=== PATIENT | female | born 1985 ===

== ENCOUNTER → 2022-01-22 | Outpatient (REF) | payer OTHER | LOC: M LAB REF 17:59 | PROVIDERS: ATTEND Physician Assistant Medical | DX: N39.0 Urinary tract infection, site not specified (principal) ==

== ENCOUNTER → 2023-01-17 | Outpatient (REF) | payer OTHER | LOC: M LAB REF 16:32 | PROVIDERS: ATTEND Nurse Practitioner Family | DX: R30.0 Dysuria (principal) ==